=== PATIENT | male | born 1975 | race American Indian/Alaskan Native ===

== ENCOUNTER 2019-03-16 02:39 | Inpatient (IN) | payer MEDICAID, OTHER ==
[2019-03-16 02:40] VITALS: BMI 23.6
[2019-03-16] MEDS ORDERED: MethylPREDNISolone 40 mg Vial IVP STA (02:52)
[2019-03-16] MEDS ORDERED: Albuterol-Ipratrop 3 mg / 0.5 (3 ml) UD INH STA ×3 (02:52→02:53)
--- NOTE | 2019-03-16 02:53 | C.PDOC ---
History Of Present Illness 43 y/o male, with history of asthma, comes in for evaluation of asthma exacerbation that started last night. Denies fever or other complaints. Patient has been previously hospitalized, last intubation was as a child. He denies any fever, chest pain, or other complaints. Time Seen by Provider: 03/16/19 02:50 Chief Complaint (Nursing): Shortness Of Breath History Per: Patient History/Exam Limitations: no limitations Onset/Duration Of Symptoms: Days Current Symptoms Are (Timing): Still Present Past Medical History Reviewed: Historical Data, Nursing Documentation, Vital Signs Vital Signs: Last Vital Signs Temp 98.0 F 03/16/19 02:45 Pulse 78 03/16/19 02:45 Resp 16 03/16/19 02:45 BP 132/88 03/16/19 02:45 Pulse Ox 96 03/16/19 02:45 Primary Care Provider: Tamica Blakely - Medical History PMH: Anxiety, Asthma, Bipolar Disorder, Bronchitis, Depression, Fractures (Right arm), HTN, Schizophrenia Family History: States: No Known Family Hx - Social History Hx Alcohol Use: Yes Hx Substance Use: No Review Of Systems Except As Marked, All Systems Reviewed And Found Negative. Constitutional: Negative for: Fever, Chills Cardiovascular: Negative for: Chest Pain, Palpitations Respiratory: Positive for: Other (asthma exacerbation) Physical Exam - Physical Exam Appears: Non-toxic, No Acute Distress Skin: Warm, Dry Head: Normacephalic Eye(s): bilateral: Normal Inspection Oral Mucosa: Moist Neck: Normal ROM, Supple Cardiovascular: Rhythm Regular, No Murmur Respiratory: No Rales, No Rhonchi, Wheezing (diffuse wheezing) Gastrointestinal/Abdominal: Soft, No Tenderness Extremity: Bilateral: Atraumatic, Normal Color And Temperature Neurological/Psych: Oriented x3, Normal Speech ED Course And Treatment - Laboratory Results Result Diagrams: 03/16/19 03:00 03/16/19 03:00 O2 Sat by Pulse Oximetry: 96 (RA) Pulse Ox Interpretation: Normal Medical Decision Making Medical Decision Making: asthma Plan: --Labs --Chest XR --Duoneb --Solumedrol s/p nebs steirods pt wheezing persistent. will obs Disposition - Disposition Disposition: HOSPITALIZED Disposition Time: 04:10 Condition: STABLE Forms: OfferIQ (Faroese) - Clinical Impression Clinical Impression: Asthma - Scribe Statement The provider has reviewed the documentation as recorded by the Dovibe Fabiola Roche Provider Attestation: All medical record entries made by the Dovibe were at my direction and personally dictated by me. I have reviewed the chart and agree that the record accurately reflects my personal performance of the history, physical exam, medical decision making, and the department course for this patient. I have also personally directed, reviewed, and agree with the discharge instructions and disposition. Decision To Admit - Pt Status Changed To: Hospital Disposition Of: Observation - . Bed Request Type: Regular Admitting Physician: Pavel Johnson Patient Diagnosis: Asthma
[2019-03-16] MEDS ORDERED: Albuterol-Ipratrop 3 mg / 0.5 (3 ml) UD ONE (03:04)
[2019-03-16 03:05] LABS: BASO # 0.1 K/uL (0.0-0.2); BASO % 0.9 % (0.0-2.0); EOS # 0.4 K/uL (0.0-0.7); EOS % 4.8 % (0.0-4.0); HEMOGLOBIN 14.3 g/dL (12.0-18.0); LYMPH # 1.6 K/uL (1.0-4.3); LYMPH % 19.5 % (20.0-40.0); MEAN CELL VOLUME 93.2 fL (80.0-94.0); MEAN CORPUSCULAR HEMOGLOBIN 31.7 pg (27.0-31.0); MEAN PLATELET VOLUME 6.5 fL (7.2-11.7); MONO # 0.5 K/uL (0.0-0.8); MONO % 6.2 % (0.0-10.0); NEUT # 5.8 K/uL (1.8-7.0); NEUT % 68.6 % (50.0-75.0); NRBC % 0.4 % (0.0-2.0); RBC 4.51 Mil/uL (4.40-5.90); RED CELL DISTRIBUTION WIDTH 13.7 % (11.5-14.5); WHITE BLOOD COUNT 8.4 K/uL (4.8-10.8)
[2019-03-16 03:14] LABS: INR 1.2; PROTHROMBIN TIME 13.6 SECONDS (9.7-12.2)
[2019-03-16 03:15] LABS: PARTIAL THROMBOPLASTIN TIME 38.7 SECONDS (21-34)
[2019-03-16 03:19] LABS: ALB/GLOB RATIO 1.2 (1.0-2.1); ALBUMIN 4.5 g/dL (3.5-5.0); ALT/SGPT 18 U/L (21-72); AST/SGOT 28 U/L (17-59); BLOOD UREA NITROGEN 11 mg/dL (9-20); CALCIUM 9.7 mg/dl (8.6-10.4); GFR NON-AFRICAN AMERICAN > 60
[2019-03-16] MEDS: Albuterol 0.083% Inhal Sol (2.5 mg/3 mL) UD INH SCH ×5 (03:40→20:26)
--- NOTE | 2019-03-16 08:28 | RAD ---
Chest x-ray single frontal view HISTORY: Asthma. COMPARISON: None available. FINDINGS: No focal infiltrate or effusion. Heart size within normal limits. Impression: No focal infiltrate or effusion.
[2019-03-16] MEDS: guaiFENesin 600 mg ER Tab PO SCH ×2 (09:25→17:15)
[2019-03-16] MEDS: MethylPREDNISolone 40 mg Vial IVP SCH ×2 (09:25→21:22)
[2019-03-16] MEDS: Enoxaparin 40 mg Syringe SC SCH (09:29)
--- NOTE | 2019-03-16 19:46 | CP.PCM.HP ---
Present on Admission - Present on Admission Any Indicators Present on Admission: No Past Patient History - Infectious Disease Hx of Infectious Diseases: None - Past Social History Smoking Status: Heavy Smoker > 10 Cigarettes Daily - CARDIAC Hx Hypertension: Yes - PULMONARY Hx Asthma: Yes Hx Bronchitis: Yes - MUSCULOSKELETAL/RHEUMATOLOGICAL Hx Fractures: Yes (Right arm) - PSYCHIATRIC Hx Anxiety: Yes Hx Bipolar Disorder: Yes Hx Depression: Yes Hx Schizophrenia: Yes Hx Substance Use: No - SURGICAL HISTORY Hx Surgeries: Yes Hx Herniorrhaphy: Yes Other/Comment: hemorrhoidectomy 2000 Meds Allergies/Adverse Reactions: Allergies Allergy/AdvReac Type Severity Reaction Status Date / Time No Known Allergies Allergy Verified 05/11/16 12:51 Results - Vital Signs Recent Vital Signs: Last Vital Signs Temp 99.4 F 03/16/19 15:45 Pulse 70 03/16/19 15:45 Resp 20 03/16/19 15:45 BP 130/73 03/16/19 15:45 Pulse Ox 96 03/16/19 15:45 - Labs Result Diagrams: 03/16/19 03:00 03/16/19 03:00 Labs: Laboratory Results - last 24 hr 03/16/19 03/16/19 03/16/19 03:00 03:00 03:00 WBC 8.4 RBC 4.51 Hgb 14.3 Hct 42.0 MCV 93.2 MCH 31.7 H MCHC 34.0 RDW 13.7 Plt Count 288 MPV 6.5 L Neut % (Auto) 68.6 Lymph % (Auto) 19.5 L Power % (Auto) 6.2 Eos % (Auto) 4.8 H Baso % (Auto) 0.9 Neut # (Auto) 5.8 Lymph # (Auto) 1.6 Power # (Auto) 0.5 Eos # (Auto) 0.4 Baso # (Auto) 0.1 PT 13.6 H INR 1.2 APTT 38.7 H Sodium 140 Potassium 4.2 Chloride 100 Carbon Dioxide 31 H Anion Gap 12 BUN 11 Creatinine 1.1 Est GFR ( Amer) > 60 Est GFR (Non-Af Amer) > 60 Random Glucose 79 Calcium 9.7 Total Bilirubin 0.5 AST 28 ALT 18 L Alkaline Phosphatase 90 Total Protein 8.2 Albumin 4.5 Globulin 3.7 Albumin/Globulin Ratio 1.2
[2019-03-17] MEDS: Albuterol 0.083% Inhal Sol (2.5 mg/3 mL) UD INH SCH ×6 (00:36→21:43)
--- NOTE | 2019-03-17 06:17 | HP ---
CHIEF COMPLAINT: Cough and wheezing x2 days. HISTORY OF PRESENT ILLNESS: This is a 43-year-old male with history of chronic obstructive asthma on prior hospitalization who came in because of cough, congestion, shortness of breath and wheezing. He has white sputum production. No fever. He has chest pain on cough, and he has chest tightness. He has wheezing. He has dyspnea at rest and dyspnea on exertion. His last intubation was as a child. He denied any recent intubation. He denied any fever, chills, or rigors. He denied any nausea, vomiting, or diarrhea. He denied any history of polyuria, polydipsia, or polyphagia. He denied any history of hematuria or pyuria. He denied any sneezing, itchy eyes, or itchy nose. He had body pain and generalized weakness. CURRENT MEDICATIONS: At home, he is on Seroquel, Norvasc, Ventolin HFA, and Zoloft. SOCIAL HISTORY: He smokes. He drinks. FAMILY HISTORY: Negative for asthma. PHYSICAL EXAMINATION: GENERAL: Middle-aged male, in mild distress. VITAL SIGNS: Blood pressure 130/73, pulse 70, respiratory rate 20, temperature 99.4. SKIN: No rashes. No bruises. HEENT: Atraumatic, normocephalic. Negative pallor. Negative jaundice. Extraocular movements are intact. NECK: Supple. Flat neck veins. No JVD. CHEST WALL: Bilateral symmetrical expansion. LUNGS: Bilateral inspiratory and expiratory rhonchi. CARDIOVASCULAR SYSTEM: S1 and S2 regular. No heave. No thrill. ABDOMEN: Soft and nontender. Bowel sounds are positive. RECTAL: Negative. EXTREMITIES: No clubbing,cyanosis, or edema. CENTRAL NERVOUS SYSTEM: Awake, alert, and oriented x3. ASSESSMENT: Acute exacerbation of bronchial asthma. PLAN: Admit. Detailed orders are written. Solu-Medrol, oxygen nebulizer treatment. Pavel Johnson MD
[2019-03-17 07:57] LABS: BASO % 0.2 % (0.0-2.0); LYMPH # 0.8 K/uL (1.0-4.3); LYMPH % 6.1 % (20.0-40.0); MEAN CELL VOLUME 92.8 fL (80.0-94.0); MEAN CORPUSCULAR HEMOGLOBIN 32.1 pg (27.0-31.0); MEAN CORPUSCULAR HGB CONC 34.6 g/dL (33.0-37.0); MEAN PLATELET VOLUME 6.9 fL (7.2-11.7); MONO # 0.6 K/uL (0.0-0.8); MONO % 4.6 % (0.0-10.0); NEUT # 11.3 K/uL (1.8-7.0); NEUT % 89.1 % (50.0-75.0); PLATELET COUNT 281 K/uL (130-400); RBC 4.05 Mil/uL (4.40-5.90); RED CELL DISTRIBUTION WIDTH 13.8 % (11.5-14.5)
[2019-03-17 07:58] LABS: WHITE BLOOD COUNT 12.7 K/uL (4.8-10.8)
[2019-03-17 08:11] LABS: ALB/GLOB RATIO 1.4 (1.0-2.1); ALT/SGPT 14 U/L (21-72); AST/SGOT 24 U/L (17-59); BLOOD UREA NITROGEN 17 mg/dL (9-20); CALCIUM 9.5 mg/dl (8.6-10.4); GFR NON-AFRICAN AMERICAN > 60
[2019-03-17 08:56] VITALS: RESP 20
[2019-03-17] MEDS: guaiFENesin 600 mg ER Tab PO SCH ×2 (10:33→17:16)
[2019-03-17] MEDS: MethylPREDNISolone 40 mg Vial IVP SCH ×2 (10:33→21:12)
[2019-03-17] MEDS: Enoxaparin 40 mg Syringe SC SCH (10:33)
[2019-03-17 11:12] LABS: LYMPHOCYTE 3 % (20-40); MONOCYTE 1 % (0-10); NEUTROPHIL 96 % (50-75); TOTAL CELLS COUNTED 100
[2019-03-17 11:13] LABS: PLATELET ESTIMATE NORMAL (NORMAL)
[2019-03-17] MEDS ORDERED: Pneumococcal 23-Valent Vaccine IM ONE (13:29)
--- NOTE | 2019-03-17 20:53 | CP.PCM.PN ---
Subjective - Date & Time of Evaluation Date of Evaluation: 03/17/19 Time of Evaluation: 07:40 - Subjective Subjective: dict Objective - Vital Signs/Intake and Output Vital Signs (last 24 hours): Temp Pulse Resp BP Pulse Ox 98 F 60 20 132/82 97 03/17/19 16:00 03/17/19 16:00 03/17/19 16:00 03/17/19 16:00 03/17/19 18:00 Intake and Output: 03/17/19 03/18/19 18:59 06:59 Intake Total 480 Balance 480 - Medications Medications: Current Medications Albuterol Sulfate (Albuterol 0.083% Inhal Amanda (2.5 Mg/3 Ml) Ud) 2.5 mg INH RQ4 [facility] Last Admin: 03/17/19 14:21 Dose: 2.5 mg Amlodipine Besylate (Norvasc) 2.5 mg PO DAILY [facility] Last Admin: 03/17/19 10:33 Dose: 2.5 mg Enoxaparin Sodium (Lovenox) 40 mg SC DAILY [facility] Last Admin: 03/17/19 10:33 Dose: 40 mg Guaifenesin (Mucinex La) 600 mg PO BID [facility] Last Admin: 03/17/19 17:16 Dose: 600 mg Loratadine (Claritin) 10 mg PO DAILY [facility] Last Admin: 03/17/19 15:24 Dose: 10 mg Methylprednisolone (Solu-Medrol) 60 mg IVP Q12 [facility] Last Admin: 03/17/19 10:33 Dose: 60 mg Montelukast Sodium (Singulair) 10 mg PO HS [facility] Last Admin: 03/16/19 21:22 Dose: 10 mg Quetiapine Fumarate (Seroquel) 50 mg PO HS [facility] Last Admin: 03/16/19 21:22 Dose: 50 mg - Labs Labs: 03/17/19 07:40 03/17/19 07:40 PT 13.6 SECONDS (9.7-12.2) H 03/16/19 03:00 INR 1.2 03/16/19 03:00 APTT 38.7 SECONDS (21-34) H 03/16/19 03:00
[2019-03-17 21:23] LABS: ABG ALLEN TEST POS; ARTERIAL BLOOD GAS HCO3 28.2 mmol/L (21-28); ARTERIAL BLOOD GAS HEMOGLOBIN 12.7 g/dL (11.7-17.4); ARTERIAL BLOOD GAS O2 SAT 97.5 % (95-98); ARTERIAL BLOOD GAS PCO2 44 mm/Hg (35-45); ARTERIAL BLOOD GAS PH 7.43 (7.35-7.45); ARTERIAL BLOOD GAS PO2 77 mm/Hg (80-100); ARTERIAL BLOOD GAS TCO2 30.6 mmol/L (22-28)
[2019-03-18] MEDS: Albuterol 0.083% Inhal Sol (2.5 mg/3 mL) UD INH SCH ×6 (00:32→20:44)
--- NOTE | 2019-03-18 01:40 | PN ---
DATE: 03/17/2019 SUBJECTIVE: The patient developed acute shortness of breath, cough, congestion, wheezing, and anxiety attack. No fever. No chills. No nausea or vomiting. PHYSICAL EXAMINATION: VITAL SIGNS: Blood pressure 132/82, pulse 60, respiratory rate 20, temperature 98. LUNGS: Bilateral few rhonchi. Equal air entry. CARDIOVASCULAR SYSTEM: S1 and S2. Regular. ABDOMEN: Soft. ASSESSMENT: Exacerbation of bronchial asthma. The patient's arterial blood gas is stable. His pCO2 is 44, and the patient is not hypoxemic. PLAN: Place the patient on , get pulmonary consult. Solu-Medrol 125 mg intravenous push. Monitor the patient. If the patient deteriorates, Intensive Care Unit evaluation. Pavel Johnson MD
[2019-03-18] MEDS: guaiFENesin 600 mg ER Tab PO SCH ×2 (09:34→18:33)
[2019-03-18] MEDS: Enoxaparin 40 mg Syringe SC SCH (09:34)
[2019-03-18] MEDS: MethylPREDNISolone 40 mg Vial IVP SCH ×2 (09:35→21:13)
--- NOTE | 2019-03-18 09:52 | RAD ---
Date of service: 03/17/2019 HISTORY: Asthma attack/SOB/respiratory distress COMPARISON: Comparison chest 03/16/2019 TECHNIQUE: Chest PA and lateral views FINDINGS: LUNGS: Interval development of mild bibasilar atelectasis. Suspect small bilateral effusions. PLEURA: As above. No pneumothorax apparent. CARDIOVASCULAR: No aortic atherosclerotic calcification present. Normal cardiac size. No pulmonary vascular congestion. OSSEOUS STRUCTURES: No significant abnormalities. VISUALIZED UPPER ABDOMEN: Normal. OTHER FINDINGS: None. IMPRESSION: Interval development of mild bibasilar atelectasis. Suspect small bilateral effusions.
[2019-03-18] MEDS ORDERED: Pneumococcal 23-Valent Vaccine IM ONE (10:00)
--- NOTE | 2019-03-18 22:06 | CP.PCM.PN ---
Subjective - Date & Time of Evaluation Date of Evaluation: 03/18/19 Time of Evaluation: 07:20 - Subjective Subjective: dict Objective - Vital Signs/Intake and Output Vital Signs (last 24 hours): Temp Pulse Resp BP Pulse Ox 98.1 F 71 20 152/74 H 99 03/18/19 16:00 03/18/19 20:53 03/18/19 16:00 03/18/19 16:00 03/18/19 16:00 Intake and Output: 03/18/19 03/19/19 18:59 06:59 Intake Total 200 Balance 200 - Medications Medications: Current Medications Albuterol Sulfate (Albuterol 0.083% Inhal Amanda (2.5 Mg/3 Ml) Ud) 2.5 mg INH RQ4 [facility] Last Admin: 03/18/19 20:44 Dose: 2.5 mg Amlodipine Besylate (Norvasc) 2.5 mg PO DAILY [facility] Last Admin: 03/18/19 09:34 Dose: 2.5 mg Enoxaparin Sodium (Lovenox) 40 mg SC DAILY [facility] Last Admin: 03/18/19 09:34 Dose: 40 mg Guaifenesin (Mucinex La) 600 mg PO BID [facility] Last Admin: 03/18/19 18:33 Dose: 600 mg Loratadine (Claritin) 10 mg PO DAILY [facility] Last Admin: 03/18/19 09:34 Dose: 10 mg Methylprednisolone (Solu-Medrol) 60 mg IVP Q12 [facility] Last Admin: 03/18/19 21:13 Dose: 60 mg Montelukast Sodium (Singulair) 10 mg PO HS [facility] Last Admin: 03/18/19 21:12 Dose: 10 mg Quetiapine Fumarate (Seroquel) 50 mg PO HS [facility] Last Admin: 03/18/19 21:12 Dose: 50 mg - Labs Labs: 03/17/19 07:40 03/17/19 07:40 PT 13.6 SECONDS (9.7-12.2) H 03/16/19 03:00 INR 1.2 03/16/19 03:00 APTT 38.7 SECONDS (21-34) H 03/16/19 03:00
[2019-03-19] MEDS: Albuterol 0.083% Inhal Sol (2.5 mg/3 mL) UD INH SCH ×5 (00:39→17:03)
--- NOTE | 2019-03-19 03:39 | PN ---
DATE: 03/18/2019 SUBJECTIVE: The patient is feeling less short of breath, less cough, less wheezing. He was on BiPAP last night. He complained of pain in right side of his throat and nasal congestion. No fever. No chills. PHYSICAL EXAMINATION: VITAL SIGNS: Blood pressure 152/74, pulse 61, respiratory rate 20, temperature 98.1. LUNGS: Bilateral inspiratory and expiratory rhonchi. CARDIOVASCULAR SYSTEM: S1 and S2, regular. ABDOMEN: Soft. ASSESSMENT: 1. Exacerbation of bronchial asthma. 2. Sinusitis. PLAN: Continue Solu-Medrol, oxygen, BiPAP. Pulmonary followup. ENT consult. ENT consult to evaluate throat. Monitor the patient. Pavel Johnson MD
--- NOTE | 2019-03-19 07:12 | CON ---
DATE: 03/18/2019 HISTORY OF PRESENT ILLNESS: This is a 43-year-old male, chief complaint wheezing, shortness of breath, and cough. The patient has a known history of asthma. The patient uses and a nebulizer machine. The patient is a smoker. PHYSICAL EXAMINATION: GENERAL: The patient is awake, alert, and oriented. VITAL SIGNS: Temperature 98 and pulse 90. HEENT: Within normal limits. NECK: Supple. CHEST: Symmetrical. Bilateral wheezes. HEART: Regular. ABDOMEN: Soft. EXTREMITIES: No edema. ASSESSMENT AND PLAN: The patient has bronchial asthma and possible chronic obstructive pulmonary disease. At this point, inhaled steroids, bronchodilators . Stevan Sim MD
[2019-03-19] MEDS: guaiFENesin 600 mg ER Tab PO SCH ×2 (09:40→18:34)
[2019-03-19] MEDS: MethylPREDNISolone 40 mg Vial IVP SCH (09:40)
[2019-03-19] MEDS: Enoxaparin 40 mg Syringe SC SCH (09:40)
[2019-03-19] MEDS: Fluticasone Nasal 50 mcg/Spray NAS SCH ×2 (12:27→18:33)
[2019-03-19] MEDS ORDERED: Moxifloxacin IV 400mg/250ml NS 400 MG/250 ML BAG IVPB SCH (13:00)
--- NOTE | 2019-03-19 13:29 | CON ---
DATE: 03/19/2019 REASON FOR CONSULTATION: Nasal congestion, possible sinusitis. REQUESTING PHYSICIAN: Dr. Johnson. HISTORY OF PRESENT ILLNESS: This is a 43-year-old male with a multiple year history of nasal congestion, which is bilateral, constant, [id number] in intensity and has had this for years. He has also had a nasal discharge, constant, [id number], on and off, frontal and bilateral for years. No throat pain. No hearing loss. PAST MEDICAL HISTORY: As noted in the chart by me. MEDICATIONS: As noted in the chart by me. ALLERGIES: NOTED IN THE CHART BY ME. PHYSICAL EXAMINATION: HEAD: Atraumatic and normocephalic. FACE: Good facial movements bilaterally. CONSTITUTIONAL: Well-fed, well-nourished. COMMUNICATIONS: Communicates well and appropriately. EXTERNAL NOSE AND EARS: No masses. No lesions. No erythema. No edema. INTERNAL NOSE AND EARS: Deviated septum. Large turbinates. Possible erythema and edema of the mucosa. ORAL CAVITY AND OROPHARYNX: No masses. No lesions. No erythema. No edema. LIPS AND GUMS: No masses. No lesions. No erythema. No edema. NECK: Supple. THYROID: No thyromegaly. No goiter. LYMPH NODES: Lymphadenopathy of the neck. ASSESSMENT: 1. Deviated septum. 2. Large turbinates. 3. Sinusitis, chronic. 4. Nasal congestion. 5. Nasal discharge. 6. Sinus headache. PLAN: The patient should be discharged home on antibiotics. The patient is in [place] and would like to follow up an ENT in [place], therefore the patient was advised to follow up with his primary care doctor and ask him to refer him to an ENT in [place]. Kvng Devlin MD
--- NOTE | 2019-03-19 15:20 | CP.PCM.PN ---
Subjective - Date & Time of Evaluation Date of Evaluation: 03/19/19 Time of Evaluation: 15:20 - Subjective Subjective: alert and oriented x3, no sob, wheezing or distress. Objective - Vital Signs/Intake and Output Vital Signs (last 24 hours): Temp Pulse Resp BP Pulse Ox 97.9 F 60 20 134/84 95 03/19/19 07:00 03/19/19 07:00 03/19/19 07:00 03/19/19 07:00 03/19/19 07:00 Intake and Output: 03/19/19 03/19/19 06:59 18:59 Intake Total 350 150 Balance 350 150 - Medications Medications: Current Medications Albuterol Sulfate (Albuterol 0.083% Inhal Amanda (2.5 Mg/3 Ml) Ud) 2.5 mg INH RQ4 [facility] Last Admin: 03/19/19 11:57 Dose: 2.5 mg Amlodipine Besylate (Norvasc) 2.5 mg PO DAILY [facility] Last Admin: 03/19/19 09:40 Dose: 2.5 mg Enoxaparin Sodium (Lovenox) 40 mg SC DAILY [facility] Last Admin: 03/19/19 09:40 Dose: 40 mg Fluticasone Propionate (Flonase) 1 spr [place] BID [facility] Last Admin: 03/19/19 12:27 Dose: 1 spray Guaifenesin (Mucinex La) 600 mg PO BID [facility] Last Admin: 03/19/19 09:40 Dose: 600 mg Moxifloxacin HCl (Avelox Iv 400mg/250ml Ns) 400 mg in 250 mls @ 167 mls/hr IVPB Q24H [facility]; Protocol Last Admin: 03/19/19 12:28 Dose: 167 mls/hr Loratadine (Claritin) 10 mg PO DAILY [facility] Last Admin: 03/19/19 09:39 Dose: 10 mg Methylprednisolone (Solu-Medrol) 40 mg IVP Q12 [facility] Montelukast Sodium (Singulair) 10 mg PO HS [facility] Last Admin: 03/18/19 21:12 Dose: 10 mg Quetiapine Fumarate (Seroquel) 50 mg PO HS [facility] Last Admin: 03/18/19 21:12 Dose: 50 mg - Labs Labs: 03/17/19 07:40 03/17/19 07:40 PT 13.6 SECONDS (9.7-12.2) H 03/16/19 03:00 INR 1.2 03/16/19 03:00 APTT 38.7 SECONDS (21-34) H 03/16/19 03:00 Assessment and Plan - Assessment and Plan (Free Text) Assessment: Patient admitted with asthma exacerbation, sinusitis, seen and examined. Alert and orientedx3, denies any sob, wheezing or chest pains. Seen by ENT advised to continue antibiotics and follow up with ENT in [facility]. Discussed with DR Johnson, plan to discharge home on augmentin for 10 days and follow up in the office.
[2019-03-19 15:51] VITALS: BP 168/89; PULSE 59; TEMP 98.6; O2SAT 97
--- NOTE | 2019-03-19 21:49 | CP.PCM.DIS ---
Provider - Provider Date of Admission: 03/17/19 20:52 Attending physician: Pavel Johnson MD Consults: 03/17/19 20:38 Pulmonology Consult Routine Comment: Consulting Provider: Stevan Sim Consulting Physician: Stevan Sim Reason for Consult: asthma attack/SOB/respiratory distress 03/18/19 19:38 Otolaryngology Consult Routine Consulting Provider: Kvng Devlin Consulting Physician: Kvng Devlin Reason for Consult: sinusiits Time Spent in preparation of Discharge (in minutes): 30 Hospital Course - Lab Results Lab Results: Most Recent Lab Values WBC 12.7 K/uL (4.8-10.8) H D 03/17/19 07:40 RBC 4.05 Mil/uL (4.40-5.90) L 03/17/19 07:40 Hgb 13.0 g/dL (12.0-18.0) 03/17/19 07:40 Hct 37.5 % (35.0-51.0) 03/17/19 07:40 MCV 92.8 fL (80.0-94.0) 03/17/19 07:40 MCH 32.1 pg (27.0-31.0) H 03/17/19 07:40 MCHC 34.6 g/dL (33.0-37.0) 03/17/19 07:40 RDW 13.8 % (11.5-14.5) 03/17/19 07:40 Plt Count 281 K/uL (130-400) 03/17/19 07:40 MPV 6.9 fL (7.2-11.7) L 03/17/19 07:40 Neut % (Auto) 89.1 % (50.0-75.0) H 03/17/19 07:40 Lymph % (Auto) 6.1 % (20.0-40.0) L 03/17/19 07:40 Ellis % (Auto) 4.6 % (0.0-10.0) 03/17/19 07:40 Eos % (Auto) 0.0 % (0.0-4.0) 03/17/19 07:40 Baso % (Auto) 0.2 % (0.0-2.0) 03/17/19 07:40 Neut # (Auto) 11.3 K/uL (1.8-7.0) H 03/17/19 07:40 Lymph # (Auto) 0.8 K/uL (1.0-4.3) L 03/17/19 07:40 Ellis # (Auto) 0.6 K/uL (0.0-0.8) 03/17/19 07:40 Eos # (Auto) 0.0 K/uL (0.0-0.7) 03/17/19 07:40 Baso # (Auto) 0.0 K/uL (0.0-0.2) 03/17/19 07:40 Neutrophils % (Manual) 96 % (50-75) H 03/17/19 07:40 Lymphocytes % (Manual) 3 % (20-40) L 03/17/19 07:40 Monocytes % (Manual) 1 % (0-10) 03/17/19 07:40 Platelet Estimate Normal (NORMAL) 03/17/19 07:40 RBC Morphology Normal 03/17/19 07:40 PT 13.6 SECONDS (9.7-12.2) H 03/16/19 03:00 INR 1.2 03/16/19 03:00 APTT 38.7 SECONDS (21-34) H 03/16/19 03:00 Puncture Site Rra 03/17/19 21:15 pCO2 44 mm/Hg (35-45) 03/17/19 21:15 pO2 77 mm/Hg (80-100) L 03/17/19 21:15 HCO3 28.2 mmol/L (21-28) H 03/17/19 21:15 ABG pH 7.43 (7.35-7.45) 03/17/19 21:15 ABG Total CO2 30.6 mmol/L (22-28) H 03/17/19 21:15 ABG O2 Saturation 97.5 % (95-98) 03/17/19 21:15 ABG Base Excess 4.3 mmol/L (-2.0-3.0) H 03/17/19 21:15 ABG Hemoglobin 12.7 g/dL (11.7-17.4) 03/17/19 21:15 ABG Carboxyhemoglobin 1.9 % (0.5-1.5) H 03/17/19 21:15 POC ABG HHb (Measured) 2.4 % (0.0-5.0) 03/17/19 21:15 ABG Methemoglobin 1.2 % (0.0-3.0) 03/17/19 21:15 Anam Test Pos 03/17/19 21:15 A-a O2 Difference 153.0 mm/Hg 03/17/19 21:15 Respiratory Index 2.0 03/17/19 21:15 Hgb O2 Saturation 94.5 % (95.0-98.0) L 03/17/19 21:15 Liter Flow 5.0 03/17/19 21:15 FiO2 40.0 % 03/17/19 21:15 Sodium 139 mmol/L (132-148) 03/17/19 07:40 Potassium 4.3 mmol/L (3.6-5.2) 03/17/19 07:40 Chloride 101 mmol/L (98-107) 03/17/19 07:40 Carbon Dioxide 25 mmol/L (22-30) 03/17/19 07:40 Anion Gap 17 (10-20) 03/17/19 07:40 BUN 17 mg/dL (9-20) 03/17/19 07:40 Creatinine 0.9 mg/dL (0.8-1.5) 03/17/19 07:40 Est GFR ( Amer) > 60 03/17/19 07:40 Est GFR (Non-Af Amer) > 60 03/17/19 07:40 Random Glucose 130 mg/dL (75-110) H D 03/17/19 07:40 Calcium 9.5 mg/dl (8.6-10.4) 03/17/19 07:40 Total Bilirubin 0.3 mg/dL (0.2-1.3) 03/17/19 07:40 AST 24 U/L (17-59) 03/17/19 07:40 ALT 14 U/L (21-72) L D 03/17/19 07:40 Alkaline Phosphatase 77 U/L (38-126) 03/17/19 07:40 Total Protein 6.8 g/dL (6.3-8.3) 03/17/19 07:40 Albumin 4.0 g/dL (3.5-5.0) 03/17/19 07:40 Globulin 2.8 gm/dL (2.2-3.9) 03/17/19 07:40 Albumin/Globulin Ratio 1.4 (1.0-2.1) 03/17/19 07:40 Discharge Plan - Discharge Medications Prescriptions: Amoxicillin/Clavulanate [Augmentin 875 MG-125 MG] 1 tab PO BID #20 tab Saccharomyces Boulardi [Florastor] 250 mg PO BID #20 cap predniSONE [Prednisone] 10 mg PO DAILY #19 tab Montelukast [Singulair] 10 mg PO HS #30 tab Albuterol HFA [Ventolin HFA 90 mcg/actuation (8 g)] 1 puff INH PRN PRN #1 inhaler PRN Reason: Wheezing - Follow Up Plan Condition: STABLE Disposition: HOME/ ROUTINE Instructions: Asthma, Adult (DC), Albuterol, Fluticasone and Salmeterol, Prednisone Additional Instructions: ugmentin 875mg po bid x 10 days follow up with PMD in 1 week follow up with ENT in 2 weeks
[2019-03-19] MEDS ORDERED: MethylPREDNISolone 40 mg Vial IVP SCH (22:00)
== END 2019-03-19 18:39 | disposition home or self-care (01) | DRG 96 ==
LOC: C.ER 02:39 → C.3T 03:22 → OBSVTOIN 03-17 20:52
PROVIDERS: ADMIT Internal Medicine; ATTEND Internal Medicine
PROC: 5A09357 Assistance with Respiratory Ventilation, Less than 24 Consecutive Hours, Continuous Positive Airway Pressure (ICD-10-PCS; principal; 2019-03-18)
DX: J45.901 Unspecified asthma with (acute) exacerbation (principal); F20.9 Schizophrenia, unspecified; J44.1 Chronic obstructive pulmonary disease with (acute) exacerbation; F17.210 Nicotine dependence, cigarettes, uncomplicated; F31.9 Bipolar disorder, unspecified; I10 Essential (primary) hypertension; J34.2 Deviated nasal septum; J32.9 Chronic sinusitis, unspecified; F41.9 Anxiety disorder, unspecified